=== PATIENT | female | born 1950 | race Two or more races ===

== ENCOUNTER 2022-04-20 13:05 | Emergency (ER) | payer OTHER, MEDICARE ==
[2022-04-20 13:39] VITALS: BP 148/62; PULSE 78; RESP 16; TEMP 98.2; BMI 20.1
[2022-04-20] MEDS ORDERED: LIDOCAINE 5% TOPICAL PATCH TP ONE (13:57)
[2022-04-20] MEDS ORDERED: LIDOCAINE 5% TOPICAL PATCH ONE (14:09)
[2022-04-20] MEDS ORDERED: LIDOCAINE PATCH REMOVAL MC SCH (22:00)
== END 2022-04-20 15:17 | disposition home or self-care (01) ==
LOC: FER 13:05
DX: M54.50 Low back pain, unspecified (principal); B02.9 Zoster without complications
CPT/HCPCS: 72100-TC-FY; 99283-25